=== PATIENT | male | born 1995 | race African-American/Black ===

== ENCOUNTER 2019-02-18 11:01 | Outpatient (CLI) | payer OTHER ==
--- NOTE | 2019-02-18 12:14 | RAD ---
ABDOMEN ONE VIEW: HISTORY: Abdominal pain. FINDINGS: There is some gas and fecal material in the colon. There is some minimal gas in dilated small bowel with what may be some subtle small bowel wall thickening, nonspecific, possibly some mild enteritis. No overt obstruction. No overt calculus. IMPRESSION: Minimal gas within nondilated small bowel with some minimal mucosal fold thickening, nonspecific, but possibly some type of nonspecific enteritis. No overt bowel obstruction. No acute calculus. POS: C
== END 2019-02-18 11:02 | disposition home or self-care (01) ==
LOC: RAD-FRANK 11:01
PROVIDERS: ATTEND Nurse Practitioner Family
DX: R10.9 Unspecified abdominal pain (principal); K63.89 Other specified diseases of intestine
CPT/HCPCS: 74018

== ENCOUNTER 2020-01-29 22:05 | Emergency (ER) | payer OTHER, SELFPAY ==
[2020-01-29] MEDS ORDERED: Acetaminophen 500 MG TAB ONE (23:03)
[2020-01-29] MEDS ORDERED: Ketorolac Tromethamine 30 MG/ML VIAL ONE (23:45)
--- NOTE | 2020-01-30 14:37 | EKG ---
Test Reason : Blood Pressure : / mmHG Vent. Rate : 102 BPM Atrial Rate : 102 BPM P-R Int : 138 ms QRS Dur : 080 ms QT Int : 304 ms P-R-T Axes : 067 054 036 degrees QTc Int : 396 ms Sinus tachycardia Otherwise normal ECG Reconfirmed by DAVID RUIZ ([id number]), proposal editor NATE PADILLA ([id number]) on 01/30/2020 2:36:36 PM Referred By: Confirmed By:DAVID RUIZ
== END 2020-01-30 00:16 | disposition home or self-care (01) ==
LOC: ERS 22:05
DX: T75.4XXA Electrocution, initial encounter (principal); M54.5 Low back pain; W86.8XXA Exposure to other electric current, initial encounter
CPT/HCPCS: 93005; 96372; J1885

== ENCOUNTER 2020-03-23 15:20 | Emergency (ER) | payer SELFPAY ==
[2020-03-23 18:21] LABS: Bacteria/HPF None Seen HPF (None Seen); Bilirubin Negative (Negative); Blood, Urine Negative (Negative); Clarity Clear (Clear); Glucose, Urine (Dipstick) Normal (Negative); Leukocyte 250 Leu/uL (Negative); Mucous/LPF Rare LPF (<2+); Nitrite Negative (Negative); Protein, Urine (Dipstick) 10 mg/dL (Neg-Trace); RBC/HPF 0-3 HPF (0-3); Squamous Epithelial 0-3 HPF (0-3); WBC/HPF Greater than 50 HPF (0-3)
[2020-03-23 19:20] LABS: #Basophils 0.1 thou/uL (0.0-0.2); #Eosinphils 0.2 thou/uL (0.0-0.7); #Lymphocytes 1.6 thou/uL (1.20-3.40); #Monocytes 0.5 thou/uL (0.11-0.59); %Basophils 0.7 % (0.0-1.0); %Lymphocytes 19.5 % (21.0-51.0); %Neutrophils 71.9 % (42.0-75.0); Hemoglobin 14.6 g/dL (14.0-18.0); Mean Corpuscular Volume 83.9 fL (78.0-98.0); Mean Platelet Volume 8.3 fL (7.4-10.4); Platelet Count 361 thou/uL (130-400); RBC Distribution Width 13.5 % (11.5-14.5); Red Blood Cell (RBC) Count 5.62 mill/uL (4.70-6.10); White Blood Cell (WBC) Count 8.4 thou/uL (4.8-10.8)
[2020-03-23 19:47] LABS: ALT (SGPT) 24 U/L (8-55); AST (SGOT) 36 U/L (5-34); Albumin 4.6 g/dL (3.5-5.0); Alkaline Phosphatase 112 U/L (40-110); Anion Gap 11 mmol/L (10-20); BUN (Urea Nitrogen) 11 mg/dL (8.9-20.6); Bilirubin, Total 0.6 mg/dL (0.2-1.2); CK (CPK) 556 U/L (30-200); Calc. Creatinine Clearance 0 mL/min (70-130); Calcium 9.6 mg/dL (7.8-10.44); Carbon Dioxide 26 mmol/L (22-29); Chloride 105 mmol/L (98-107); Estimated GFR-MDRD Greater than 90; Globulin 3.6 g/dL (2.4-3.5); Glucose 86 mg/dL (70-105); Lipase 13 U/L (8-78); Potassium 3.9 mmol/L (3.5-5.1); Protein, Total 8.2 g/dL (6.0-8.3); Sodium 138 mmol/L (136-145)
[2020-03-25 23:28] LABS: Chlam.trachomatis by PCR,Urine DETECTED (NotDetected)
== END 2020-03-23 20:02 | disposition home or self-care (01) ==
LOC: ERS 15:20
DX: N39.0 Urinary tract infection, site not specified (principal)
CPT/HCPCS: 36415; 80053; 81003; 81015; 82550; 83690; 85025; 87491; 87591; 99284

== ENCOUNTER 2020-08-22 19:09 | Emergency (ER) | payer SELFPAY ==
[2020-08-23 05:33] LABS: SARS-CoV-2 MS2 Positive; SARS-CoV-2 N Gene Negative; SARS-CoV-2 S Gene Negative; SARS-CoV-2 by NAA Not Detected (NotDetected); SARS-CoV-2 orf1ab Negative
== END 2020-08-22 20:08 | disposition home or self-care (01) ==
LOC: ERS 19:09
DX: R43.8 Other disturbances of smell and taste (principal); Z20.828 Contact with and (suspected) exposure to other viral communicable diseases
CPT/HCPCS: 87635; 99283; U0003

== ENCOUNTER 2023-12-21 10:00 | Emergency (ER) | payer SELFPAY ==
[2023-12-21 10:41] LABS: Bacteria/HPF None Seen HPF (None Seen); Bilirubin Negative (Negative); Blood, Urine Negative (Negative); CAUTI Indications for Culture Pelvic or flank pain; Clarity Clear (Clear); Glucose, Urine (Dipstick) Greater than 1000 mg/dL (Negative); Ketone, Urine 20 mg/dL (Negative); Leukocyte Negative Leu/uL (Negative); Nitrite Negative (Negative); Protein, Urine (Dipstick) Negative (Neg-Trace); RBC/HPF 0-3 HPF (0-3); Specific Gravity, Urine 1.043 (1.002-1.036); Squamous Epithelial 0-3 HPF (0-3); Urobilinogen Normal mg/dL (Less than 2); WBC/HPF 0-3 HPF (0-3)
[2023-12-21 10:42] LABS: Urine Culture Reflex No No
[2023-12-21 10:45] LABS: #Monocytes 0.8 thou/uL (0.11-0.59); #Neutrophils 5.1 thou/uL (1.40-6.50); %Basophils 0.5 % (0.0-1.0); %Eosinophils 0.4 % (0.0-10.0); %Lymphocytes 20.8 % (21.0-51.0); %Monocytes 10.8 % (0.0-10.0); %Neutrophils 67.2 % (42.0-75.0); Hematocrit 45.3 % (42.0-52.0); Hemoglobin 14.4 g/dL (14.0-18.0); Mean Corpuscular HGB CONC 31.8 g/dL (32.0-36.0); Mean Corpuscular Volume 75.4 fl (78.0-98.0); Mean Platelet Volume 10.8 fL (7.4-10.4); Platelet Count 434 10x3/uL (130-400); Red Blood Cell (RBC) Count 6.01 mill/uL (4.70-6.10); White Blood Cell (WBC) Count 7.6 10x3/uL (4.8-10.8)
[2023-12-21 11:15] LABS: ALT (SGPT) 33 U/L (8-55); AST (SGOT) 57 U/L (5-34); Albumin 4.3 g/dL (3.5-5.0); Alkaline Phosphatase 173 U/L (40-110); Anion Gap 16 mmol/L (10-20); BUN (Urea Nitrogen) 11 mg/dL (8.9-20.6); Bilirubin, Total 0.5 mg/dL (0.2-1.2); Calc. Creatinine Clearance 0 mL/min (70-130); Calcium 10.1 mg/dL (7.8-10.44); Carbon Dioxide 24 mmol/L (22-29); Chloride 94 mmol/L (98-107); Estimated GFR 73; Globulin 4.9 g/dL (2.4-3.5); Glucose 479 mg/dL (70-105); Lipase 13 U/L (8-78); Potassium 4.8 mmol/L (3.5-5.1); Protein, Total 9.2 g/dL (6.0-8.3); Sodium 129 mmol/L (136-145)
[2023-12-21 11:47] LABS: Hemoglobin A1c Greater than 14.0 % (4.0-6.0)
[2023-12-21 11:58] LABS: Magnesium 1.6 mg/dL (1.6-2.6)
[2023-12-21 12:05] LABS: Phosphorus 3.5 mg/dL (2.3-4.7)
[2023-12-21 12:08] LABS: Actual Bicarbonate (HCO3v) 24.8 mEq/L (22-28); Analyzer IN Cardio ER; Base Excess -1.3 mEq/L (-2.0 to +3.0); Calcium, Ionized (venous) 1.12 mmol/L (1.16-1.32); Chloride (VBG) 94 mmol/L (98-106); Hematocrit-VBG 41 % (42.0-52.0); Hemoglobin (Hb) 14.1 g/dL (13.2-17.3); Potassium (VBG) 5.04 mmol/L (3.70-5.30); Sodium 128 mmol/L (133-146); pH (venous) 7.342 (7.32-7.43)
[2023-12-21] MEDS ORDERED: Ondansetron PF 4 MG/2 ML Vial ONE (12:57)
[2023-12-21] MEDS ORDERED: Dicyclomine 20 MG/2 ML VIAL ONE (12:57)
== END 2023-12-21 13:28 | disposition home or self-care (01) ==
LOC: ERS 10:00
DX: E11.9 Type 2 diabetes mellitus without complications (principal)
CPT/HCPCS: 36415; 36416; 74177; 80053; 81001; 82010; 82805; 83036; 83605; 83690; 83735; 84100; 85025; 96361; 96372; 96374; J2405

== ENCOUNTER 2024-11-17 22:19 | Emergency (ER) | payer OTHER, SELFPAY | END 2024-11-17 23:46 | LOC: EEVIPCON 22:19 → ERS 22:19 | DX: S06.0X9A Concussion with loss of consciousness of unspecified duration, initial encounter (principal); E11.9 Type 2 diabetes mellitus without complications; W22.8XXA Striking against or struck by other objects, initial encounter; Y92.149 Unspecified place in prison as the place of occurrence of the external cause | CPT/HCPCS: 70450 ==